=== PATIENT | male | born 1955 ===

== ENCOUNTER 2024-03-05 10:54 | Outpatient (OUT) | payer MEDICARE, OTHER, SELFPAY ==
--- NOTE | 2024-03-05 | XR_ITS ---
The [address] [address] Patient Name: SUGAR ADORNO MRN: [id number] date: 1955 Sex: M Assigned Patient Location: Current Patient Location: Accession/Order Number: [id number] Exam Date: 03/05/2024 11:15 Report Date: 03/06/2024 08:40 At the request of: JOJO LYNCH Procedure: XR foot LT min 3V PROCEDURE: XR foot LT min 3V COMPARISON: None. HISTORY: LEFT FOOT PAIN FINDINGS: BONES:No acute fracture or dislocation. Moderate enthesopathic spurring of the plantar calcaneus. Mild degenerative changes. SOFT TISSUES:Negative. No visible soft tissue swelling. EFFUSION:None visible. OTHER: Negative. XR/XR foot LT min 3V IMPRESSION: Degenerative changes with calcaneal enthesopathy Electronically authenticated by: JOSEY SALDANA Date: 03/06/2024 08:40
== END 2024-03-05 10:55 | disposition home or self-care (01) ==
LOC: EC 10:57
PROVIDERS: Visit Provider Physician Assistant
DX: M79.672 Pain in left foot (principal); M77.32 Calcaneal spur, left foot
CPT/HCPCS: 73630